=== PATIENT | female | born 1990 | race Two or more races ===

== ENCOUNTER 2020-03-21 16:25 | Emergency (ER) | payer MEDICAID ==
[~2020-03-21] VITALS: Ht 160 cm; Wt 46.0 kg
[2020-03-21 18:27] LABS: BASOPHILS % 0.5 % (0.0-2.0); EOSINOPHILS % 0.2 % (0.0-5.0); HEMATOCRIT. 34.9 % (36.0-48.0); LYMPHOCYTES % 10.2 % (20.0-50.0); MEAN CORPUSCULAR HEMOGLOBIN 31.9 pg (28.0-32.0); MEAN CORPUSCULAR VOLUME 92.8 fL (81.0-99.0); MEAN PLATELET VOLUME 7.8 fl (7.4-10.4); MONOCYTES % 5.8 % (2.0-8.0); NEUTROPHILS % 83.3 % (40.0-76.0); PLATELET 198 x1000/uL (130-400); RED BLOOD CELL COUNT 3.76 mill/uL (4.2-5.4); RED CELL DISTRIBUTION WIDTH 12.9 % (11.6-14.6)
[2020-03-21 18:33] LABS: CHLORIDE 110 mEq/L (98-107)
[2020-03-21 19:32] VITALS: BP 103/64
== END 2020-03-21 20:00 | disposition home or self-care (01) ==
LOC: ER 16:25
DX: I47.1 Supraventricular tachycardia (principal); Z88.6 Allergy status to analgesic agent
CPT/HCPCS: 36415; 71045; 80053; 83880; 84484; 85025; 93005; 99285

== ENCOUNTER 2023-07-14 02:58 | Emergency (ER) | payer MEDICAID ==
[~2023-07-14] VITALS: Ht 165.1 cm; Wt 50.0 kg
[2023-07-14 03:03] VITALS: O2SAT 98
[2023-07-14] MEDS ORDERED: LIDOCAINE 5% PATCH TOP SCH (03:15)
[2023-07-14] MEDS ORDERED: ACETAMINOPHEN 325MG TABLET PO ONE (03:15)
[2023-07-14] MEDS ORDERED: ONDANSETRON HCL 4MG/2ML INJ IV ONE (04:30)
[2023-07-14 05:05] LABS: HCG SCREEN NEGATIVE
[2023-07-14] MEDS ORDERED: AMOXICILLIN/POTASSIUM CLAVULANATE 875/125MG TAB PO NR (06:00)
[2023-07-14] MEDS ORDERED: IBUPROFEN 400MG TABLET PO NR (06:00)
[2023-07-14] MEDS ORDERED: IBUP-2029 MT (06:01)
[2023-07-14] MEDS ORDERED: ONDA4TAB50 MT (06:01)
[2023-07-14] MEDS ORDERED: AMOX1TAB16 MT (06:01)
[2023-07-14] MEDS ORDERED: HYDR-4001 MT (06:30)
[2023-07-14] MEDS ORDERED: ONDANSETRON HCL 4MG/2ML INJ IV SCH (07:20)
[2023-07-14 08:19] VITALS: BP 114/68; PULSE 86; RESP 16; TEMP 98.2
== END 2023-07-14 08:30 | disposition home or self-care (01) ==
LOC: ER 02:58
DX: S02.2XXA Fracture of nasal bones, initial encounter for closed fracture (principal); Z88.5 Allergy status to narcotic agent; S06.9XAA Unspecified intracranial injury with loss of consciousness status unknown, initial encounter; Y04.0XXA Assault by unarmed brawl or fight, initial encounter; Y93.89 Activity, other specified; Y92.89 Other specified places as the place of occurrence of the external cause; Y99.8 Other external cause status
CPT/HCPCS: 81025; 84703; 70450; 70486; 72125; 96374; 99285; J2405; Z7610 ×2

== ENCOUNTER 2024-12-03 12:45 | Emergency (ER) | payer MEDICAID ==
[~2024-12-03] VITALS: Ht 157.5 cm; Wt 39.0 kg
[~2024-12-03 12:45] MED LIST: AMOX1TAB16 MT; HYDR-4001 MT; IBUP-2029 MT; ONDA4TAB50 MT
[2024-12-03 13:13] VITALS: O2SAT 99
[2024-12-03] MEDS: KETOROLAC 30MG/ML VIAL IM ONE (15:40)
[2024-12-03] MEDS: ONDANSETRON 4MG ODT PO ONE (15:46)
[2024-12-03] MEDS: LIDOCAINE HCL/PF 1% 10 MG/ML 5ML VIAL INFIL ONE (15:46)
[2024-12-03] MEDS: BACITRACIN ZINC OINT UDPKT TOP ONE (15:47)
[2024-12-03] MEDS: LACTATED RINGERS 1,000 ML IV ONE (15:48)
[2024-12-03] MEDS: TETANUS, DIPHTHERIA, PERTUSSIS VAC/PF 0.5ML (>10YR OLD) IM ONE (15:54)
[2024-12-03] MEDS ORDERED: AMOX250S70 GT (17:43)
[2024-12-03 18:24] VITALS: BP 106/47; PULSE 76; RESP 16; TEMP 36.8; O2SAT 98
== END 2024-12-03 18:30 | disposition home or self-care (01) ==
LOC: ER 12:45
DX: S81.011A Laceration without foreign body, right knee, initial encounter (principal); Z88.5 Allergy status to narcotic agent; W01.0XXA Fall on same level from slipping, tripping and stumbling without subsequent striking against object, initial encounter; Y93.89 Activity, other specified; Y92.89 Other specified places as the place of occurrence of the external cause; Y99.8 Other external cause status
CPT/HCPCS: 90715; 12002; 90471; 96372; 99284; Q0162; J1885; J2003; J7120; Z7610 ×2; L1830